=== PATIENT | female | born 1985 | race Caucasian/White ===

== ENCOUNTER 2017-06-14 07:32 | Emergency (ER) | payer OTHER ==
[~2017-06-14] VITALS: Ht 172.7 cm; Wt 63.5 kg
[~2017-06-14 07:32] MED LIST: ACETAMINOPHEN325 M1 PO; CALCIUM +D & M1 EAC1 PO; COLACE100 MG PO; DERMOPLAST SPRA56 ML TOP; FERRO-TIME325 MG PO; IBUPROFEN 800800 M1 PO; IMODIUM ADVANC1 EAC1; LANSINOH 60 GM60 GM TOP; PROBIOTIC1 EACH PO; REGLAN 10 MG TA10 M1 PO; TUCKS1 EAC1; VICODIN 5-5001 EACH PO; ZOFRAN4 MG PO
[2017-06-14] MEDS ORDERED: ESTRADIOL 1 MG T1 M1 TRANSDERM (07:44)
[2017-06-14] MEDS ORDERED: PROGESTERONE100 MG PO (07:44)
[2017-06-14 08:10] LABS: ABSOLUTE LYMPHOCYTES 1.6 thou/uL (0.8-5.3); ABSOLUTE MONOCYTES 0.3 thou/uL (0.0-1.2); ABSOLUTE NEUTROPHILS 2.7 thou/uL (1.6-8.1); BASOPHILS 0.6 %; EOSINOPHILS 0.5 %; HEMATOCRIT 39.4 % (37.0-47.0); HEMOGLOBIN 13.4 gm/dL (12.0-15.0); LYMPHOCYTES 34.8 %; MCH 30.3 pg (26.0-34.0); MCHC 34.1 g/dL (28.0-37.0); MCV 88.8 fL (80.0-100.0); MONOCYTES 6.4 %; MPV 7.8 fl. (7.2-11.1); NUCLEATED RBCS 0 /100WBC; PLATELET COUNT* 193 thou/uL (150-400); POLYS 57.7 %; RBC 4.44 mil/uL (4.20-5.00); RDW-CV 12.6 % (10.5-14.5); WBC 4.7 thou/uL (4.0-11.0)
[2017-06-14 08:30] LABS: ALBUMIN 4.1 g/dL (3.4-5.0); CREATININE 0.7 mg/dL (0.6-1.3); POTASSIUM 3.8 mmol/L (3.5-5.1); TOTAL BILIRUBIN 0.5 mg/dL (<0.1-1.0); TOTAL PROTEIN 7.1 g/dL (6.4-8.2)
[2017-06-14 09:07] VITALS: BP 82/44
== END 2017-06-14 09:08 | disposition home or self-care (01) ==
LOC: M.ERS 07:32
PROVIDERS: Family Medicine
DX: G43.909 Migraine, unspecified, not intractable, without status migrainosus (principal); Z90.710 Acquired absence of both cervix and uterus